=== PATIENT | female | born 1995 | race African-American/Black ===

== ENCOUNTER 2017-01-31 09:01 | Emergency (ER) | payer MEDICAID ==
[~2017-01-31] VITALS: Ht 170.2 cm; Wt 80.0 kg
[~2017-01-31 09:01] MED LIST: IBUP800T23 PO
[2017-01-31 09:03] VITALS: BP 145/66; PULSE 116; RESP 24; TEMP 98.3; O2SAT 100
[2017-01-31] MEDS ORDERED: TRAM50TA PO (09:33)
[2017-01-31] MEDS ORDERED: CLIN1CAP5 PO (09:47)
--- NOTE | 2017-01-31 09:47 | PD ---
HPI Chief Complaint: Oral / Dental Pain or Problem Time Seen by Provider: 09:30 Travel History International Travel<30 days: No Contact w/Intl Traveler<30days: No Traveled to known affect area: No History of Present Illness HPI Patient is a 21-year-old female presented to the emergency room for evaluation of left upper tooth pain. Patient states her tooth broke in October however last night she was eating a hot pocket and it chipped further causing exacerbation of her pain. Patient states she's been taking ibuprofen with no relief of her symptoms. She states that she was evaluated after the tooth broke in October and was unable to get it extracted until February in [place] due to her insurance issues. Pain is a 10 out of 10 currently and describes it as shooting and throbbing. She has no other complaints at this time. [facility] Past Medical History Genitourinary: Yes Immunizations Current: Yes ?: Not Social History Alcohol Use: No Tobacco Use: No Substance Use: No Allergies-Medications (Allergen,Severity, Reaction): Coded Allergies: No Known Allergies (Unverified , 01/31/17) Reported Meds & Prescriptions Reported Meds & Active Scripts Active Clindamycin (Clindamycin HCl) 150 Mg Cap 300 Mg PO Q8HR 10 Days Tramadol (Tramadol HCl) 50 Mg Tab 50 Mg PO Q6H PRN Ibuprofen 800 Mg Tab 800 Mg PO Q6HR PRN Review of Systems Except as stated in HPI: all other systems reviewed are Neg HENT: Positive: Dental Difficulties Physical Exam Narrative GENERAL: Well-nourished, well-developed patient. SKIN: Warm and dry. HEAD: Normocephalic. MOUTH: Mucous membranes moist, no lesions, tongue and gums appear normal. Left upper second molar is broken/tripped at gumline. EYES: No scleral icterus. No injection or drainage. NECK: Supple, trachea midline. No JVD or lymphadenopathy. CARDIOVASCULAR: Regular rate and rhythm without murmurs, gallops, or rubs. RESPIRATORY: Breath sounds equal bilaterally. No accessory muscle use. GASTROINTESTINAL: Abdomen soft, non-tender, nondistended. MUSCULOSKELETAL: No cyanosis, or edema. BACK: Nontender without obvious deformity. No CVA tenderness. Data Data Last Documented VS Vital Signs Date Time Temp Pulse Resp B/P Pulse Ox O2 Delivery O2 Flow Rate FiO2 01/31/17 10:01 88 18 122/77 01/31/17 09:03 98.3 100 Room Air MDM Medical Decision Making Medical Screen Exam Complete: Yes Emergency Medical Condition: Yes Interpretation(s) Vital Signs Date Time Temp Pulse Resp B/P Pulse Ox O2 Delivery O2 Flow Rate FiO2 01/31/17 09:03 98.3 116 24 145/66 100 Room Air Differential Diagnosis Abscess versus dentalgia versus caries versus other Narrative Course Patient is a 21-year-old female presenting to the emergency department evaluation of left upper molar pain after eating last night and subsequently chipping her tooth further. Left upper second molar is broken. Patient will be provided with a prescription for antibiotics as well as a short course of oral pain medications. She is advised to follow-up with her dentist as soon as possible for further evaluation and management. She was encouraged return to emergency department for any new or worsening symptoms. Patient verbalized understanding. Patient stable for discharge. Patient's heart rate and respiratory rate were elevated on arrival, vital signs were reassessed and were within normal limits. Diagnosis Primary Impression: Pain due to dental caries Referrals: Dentist Patient Instructions: Dental Caries (DC), General Instructions Additional Instructions: Follow-up with your dentist Take medications as directed Return to emergency department for any new or worsening symptoms Med/Other Pt SpecificInfo: Prescription(s) given Scripts Clindamycin 150 Mg [id number] Mg PO Q8HR 10 Days Ref 0 Prov:Zari Fisher 01/31/17 Tramadol 50 Mg Tab50 Mg PO Q6H PRN (PAIN) #15 TAB Ref 0 Prov:Aan Desir DO 01/31/17 Disposition: 01 DISCHARGE HOME Condition: Stable Zari Fisher Jan 31, 2017 09:47
[2017-01-31 10:01] VITALS: BP 122/77; PULSE 88; RESP 18
== END 2017-01-31 10:25 | disposition home or self-care (01) ==
LOC: NEPB 09:01
DX: K02.9 Dental caries, unspecified (principal)
CPT/HCPCS: 99282

== ENCOUNTER 2017-05-06 14:44 | Emergency (ER) | payer MEDICAID ==
[~2017-05-06] VITALS: Ht 170.2 cm; Wt 77.0 kg
[~2017-05-06 14:44] MED LIST changes: +CLIN1CAP5 PO; +TRAM50TA PO
[2017-05-06 14:45] VITALS: BP 151/99; PULSE 80; RESP 16; TEMP 98.2; O2SAT 99
[2017-05-06 16:02] LABS: AUTOMATED NEUTROPHIL # 2.5 TH/MM3 (1.8-7.7); BASOPHIL % 0.6 % (0.0-2.0); EOSINOPHIL # 0.1 TH/MM3 (0-0.4); EOSINOPHIL % 1.8 % (0.0-4.0); HEMATOCRIT 40.2 % (35.0-46.0); HEMO FLAGS DIFF FINAL; LYMPH % 37.2 % (9.0-44.0); LYMPHOCYTE # 1.8 TH/MM3 (1.0-4.8); MEAN CELL VOLUME 89.1 FL (80.0-100.0); MEAN CORPUSCULAR HEMOGLOBIN 29.6 PG (27.0-34.0); MEAN CORPUSCULAR HGB CONC 33.3 % (32.0-36.0); MONO % 7.1 % (0.0-8.0); NEUT % 53.3 % (16.0-70.0); PLATELET COUNT 220 TH/MM3 (150-450); RED BLOOD COUNT 4.51 MIL/MM3 (4.00-5.30); RED CELL DISTRIBUTION WIDTH 13.8 % (11.6-17.2); WHITE BLOOD COUNT 4.8 TH/MM3 (4.0-11.0)
[2017-05-06 16:09] LABS: BACTERIA, URINE RARE /hpf; BLOOD, URINE TRACE (NEG); COMMENT (UR) CULTURE INDICATED; CULTURE IF INDICATED CULTURE INDICATED; GLUCOSE,URINE NEG (NEG); KETONE, URINE NEG (NEG); MUCUS URINE FEW /lpf (OCC); SQUAMOUS EPITHELIAL CELL URINE 5 /hpf (0-5)
[2017-05-06 16:10] LABS: NITRITE,URINE POS (NEG); URINE COLOR DARK-BROWN (YELLW/STRAW)
[2017-05-06 16:20] LABS: BICARBONATE 28.1 MEQ/L (21.0-32.0); POTASSIUM 3.3 MEQ/L (3.5-5.1)
--- NOTE | 2017-05-06 16:55 | PD ---
HPI Chief Complaint: Complaint Time Seen by Provider: 16:54 Travel History International Travel<30 days: No Contact w/Intl Traveler<30days: No Traveled to known affect area: No History of Present Illness HPI 21 YO female presents to the ED for evaluation of 48 hour history of dysuria, increased urinary urgency. Sudden onset yesterday afternoon. Patient also complains of approximately 30 day history of cough productive of "brown phlegm" and shortness of breath. She denies fever, chills, palpitations, chest pain, abdominal pain, anorexia, nausea, vomiting, changes in bowel habits. Endorses right-sided back pain. States that she has treated the cough with multiple over -the-counter medications with no improvement of symptoms. PFSH Past Medical History Hx Anticoagulant Therapy: No Cardiovascular Problems: No Chemotherapy: No Cerebrovascular Accident: No Diabetes: No Genitourinary: Yes Respiratory: No Immunizations Current: Yes ?: Not LMP: 04/30/17 Past Surgical History Hysterectomy: No Social History Alcohol Use: No Tobacco Use: No Substance Use: No Allergies-Medications (Allergen,Severity, Reaction): Coded Allergies: No Known Allergies (Unverified , 05/06/17) Reported Meds & Prescriptions Reported Meds & Active Scripts Active Tessalon Perles (Benzonatate) 100 Mg Cap 200 Mg PO TID PRN Bactrim DS (Sulfamethoxazole-Trimethoprim) 800-160 Mg Tab 1 Tab PO BID 14 Days Clindamycin (Clindamycin HCl) 150 Mg Cap 300 Mg PO Q8HR 10 Days Tramadol (Tramadol HCl) 50 Mg Tab 50 Mg PO Q6H PRN Ibuprofen 800 Mg Tab 800 Mg PO Q6HR PRN Review of Systems Except as stated in HPI: all other systems reviewed are Neg Physical Exam Narrative GENERAL: Well-nourished, well-developed nontoxic-appearing female in no acute distress. SKIN: Focused skin assessment warm/dry. HEAD: Normocephalic. EYES: No scleral icterus. No injection or drainage. NECK: Supple, trachea midline. No JVD or lymphadenopathy. CARDIOVASCULAR: Regular rate and rhythm without murmurs, gallops, or rubs. RESPIRATORY: Breath sounds clear and equal bilaterally. No accessory muscle use. GASTROINTESTINAL: Abdomen soft, non-tender, nondistended. Mild suprapubic tenderness. Active bowel sounds. MUSCULOSKELETAL: No cyanosis, or edema. BACK: Nontender without obvious deformity. ++ Right-sided CVA tenderness. Data Data Last Documented VS Vital Signs Date Time Temp Pulse Resp B/P Pulse Ox O2 Delivery O2 Flow Rate FiO2 05/06/17 14:45 98.2 80 16 151/99 99 Orders Urinalysis - C+S If Indicated (05/06/17 14:57) Ed Urine Pregnancytest Poc (05/06/17 14:57) Complete Blood Count With Diff (05/06/17 14:57) Basic Metabolic Panel (Bmp) (05/06/17 14:57) Urine Culture (05/06/17 15:15) Chest, Single Ap (05/06/17 ) Labs Laboratory Tests Test 05/06/17 15:15 White Blood Count 4.8 TH/MM3 Red Blood Count 4.51 MIL/MM3 Hemoglobin 13.4 GM/DL Hematocrit 40.2 % Mean Corpuscular Volume 89.1 FL Mean Corpuscular Hemoglobin 29.6 PG Mean Corpuscular Hemoglobin 33.3 % Concent Red Cell Distribution Width 13.8 % Platelet Count 220 TH/MM3 Mean Platelet Volume 8.9 FL Neutrophils (%) (Auto) 53.3 % Lymphocytes (%) (Auto) 37.2 % Monocytes (%) (Auto) 7.1 % Eosinophils (%) (Auto) 1.8 % Basophils (%) (Auto) 0.6 % Neutrophils # (Auto) 2.5 TH/MM3 Lymphocytes # (Auto) 1.8 TH/MM3 Monocytes # (Auto) 0.3 TH/MM3 Eosinophils # (Auto) 0.1 TH/MM3 Basophils # (Auto) 0.0 TH/MM3 CBC Comment DIFF FINAL Differential Comment Urine Color DARK-BROWN Urine Turbidity HAZY Urine pH 6.0 Urine Specific [place] 1.010 Urine Protein NEG mg/dL Urine Glucose (UA) NEG mg/dL Urine Ketones NEG mg/dL Urine Occult Blood TRACE Urine Nitrite POS Urine Bilirubin NEG Urine Urobilinogen 2.0 MG/DL Urine Leukocyte Esterase LARGE Urine RBC LESS THAN 1 /hpf Urine WBC 4 /hpf Urine Squamous Epithelial 5 /hpf Cells Urine Bacteria RARE /hpf Urine Mucus FEW /lpf Microscopic Urinalysis Comment CULTURE INDICATED Sodium Level 140 MEQ/L Potassium Level 3.3 MEQ/L Chloride Level 106 MEQ/L Carbon Dioxide Level 28.1 MEQ/L Anion Gap 6 MEQ/L Blood Urea Nitrogen 8 MG/DL Creatinine 0.80 MG/DL Estimat Glomerular Filtration 108 ML/MIN Rate Random Glucose 81 MG/DL Calcium Level 9.2 MG/DL MDM Medical Decision Making Medical Screen Exam Complete: Yes Emergency Medical Condition: Yes Differential Diagnosis Cystitis versus pyelonephritis versus versus bronchitis versus pneumonia versus other Narrative Course 21 YO female presents to the ED for evaluation of 48 hour history of dysuria, increased urinary urgency. Sudden onset yesterday afternoon. Patient also complains of approximately 30 day history of cough productive of "brown phlegm" and shortness of breath. She denies fever, chills, palpitations, chest pain, abdominal pain, anorexia, nausea, vomiting, changes in bowel habits. Endorses right-sided back pain. States that she has treated the cough with multiple over -the-counter medications with no improvement of symptoms. Vitals reviewed. Physical exam reveals a nontoxic appearing white female in no acute distress. Chest is clear to auscultation bilaterally. Abdomen soft, nontender. There is right-sided CVA tenderness. Urine test negative. No acute disease on chest x-ray. CBC and CMP are unremarkable. UA nitrite positive, large leukocyte esterase, rare bacteria. This is pyelonephritis. She was prescribed Bactrim DS twice a day 14 days [facility]. He is provided a few doses of Tessalon Perles. She is instructed take the medication as prescribed, follow up with primary care provider, return for worsening symptoms. She indicated understanding of instructions and is agreeable to a care plan. She is stable and discharged home. Diagnosis Primary Impression: Pyelonephritis Additional Impression: Persistent cough Referrals: Primary Care Physician Patient Instructions: Acute Pyelonephritis (ED), General Instructions Additional Instructions: Rest, hydrate. Take all antibiotics as prescribed, even if your symptoms resolve. Tessalon Perles as prescribed to reduce coughing. Follow-up with the primary care provider this week. Return to the ED for any urgent or emergent medical condition. Med/Other Pt SpecificInfo: Prescription(s) given Scripts Benzonatate (Tessalon Perles)100 Mg [id number] Mg PO TID PRN (COUGH) #12 CAP Ref 0 Prov:Odessa Holley MD 05/06/17 Sulfamethoxazole-Trimethoprim (Bactrim DS)800-160 Mg Tab1 Tab PO BID 14 Days Ref 0 Prov:Highet,Odessa H. MD 05/06/17 Disposition: 01 DISCHARGE HOME Condition: Stable Ioana Allen May 06, 2017 16:55
[2017-05-06] MEDS ORDERED: BACT800T5 PO (17:18)
--- NOTE | 2017-05-06 17:42 | RADRPT ---
EXAM DATE/TIME: 05/06/2017 17:31 [facility] COMPARISON: No previous studies available for comparison. INDICATIONS : Cough, difficulty breathing for 1 month MEDICAL HISTORY : None. SURGICAL HISTORY : None. ENCOUNTER: Initial ACUITY: 1 month PAIN SCORE: 5/10 LOCATION: Bilateral chest FINDINGS: A single view of the chest demonstrates the lungs to be symmetrically aerated without evidence of mas s, infiltrate or effusion. The cardiomediastinal contours are unremarkable. Osseous structures are intact. CONCLUSION: No acute disease. Shawn Suarez MD on May 06, 2017 at 17:39 Board Certified Radiologist. This report was verified electronically.
[2017-05-06] MEDS ORDERED: BENZ100 PO (17:43)
== END 2017-05-06 18:01 | disposition home or self-care (01) ==
LOC: NEPD 14:44
DX: N12 Tubulo-interstitial nephritis, not specified as acute or chronic (principal); B96.20 Unspecified Escherichia coli [E. coli] as the cause of diseases classified elsewhere; R05 Cough; R06.02 Shortness of breath
CPT/HCPCS: 71010; 80048; 81001; 84703; 85025; 87077; 87086; 87186; 99284

== ENCOUNTER 2017-06-11 10:11 | Emergency (ER) | payer MEDICAID ==
[~2017-06-11] VITALS: Ht 170.2 cm; Wt 80.0 kg
[~2017-06-11 10:11] MED LIST changes: +BACT800T5 PO; +BENZ100 PO
[2017-06-11] MEDS ORDERED: SODIUM CHLOR 0.9% 1000 ML INJ 1,000 ML IV ONE ×2 (10:15)
[2017-06-11] MEDS ORDERED: METOCLOPRAMIDE HCL 10 MG/2 ML VIAL IV PUSH ONE (10:15)
[2017-06-11] MEDS ORDERED: SODIUM CHLORIDE 0.9% FLUSH 10 ML FLUSH IVF PRN (10:15)
[2017-06-11] MEDS ORDERED: diphenhydrAMINE HCL 50 MG/ML VIAL IM ONE (10:15)
[2017-06-11 10:17] VITALS: BP 165/79; PULSE 73; RESP 26; TEMP 97.6; O2SAT 100
--- NOTE | 2017-06-11 10:30 | PD ---
HPI Chief Complaint: nausea and vomiting Time Seen by Provider: 10:15 Travel History International Travel<30 days: No Contact w/Intl Traveler<30days: No History of Present Illness HPI 21 yo female arrives by EMS. She drank alcohol last night, 2 drinks, and woke up at 5am with nausea and vomiting repeatedly. Upon arrival to ER emesis was bilious. She also complains of abdominal pain since this AM. To the RN she mentioned a recent diagnosis of pyelonephritis and believes the same process might be affecting her today. Hx is somewhat limited upon pt's arrival 2/2 intoxicated state. PFSH Past Medical History Hx Anticoagulant Therapy: No Cardiovascular Problems: No Chemotherapy: No Cerebrovascular Accident: No Diabetes: No Genitourinary: Yes Respiratory: No Immunizations Current: Yes Past Surgical History Hysterectomy: No Social History Alcohol Use: No Tobacco Use: No Substance Use: No Allergies-Medications (Allergen,Severity, Reaction): Coded Allergies: No Known Allergies (Unverified , 05/06/17) Reported Meds & Prescriptions Reported Meds & Active Scripts Active Tramadol (Tramadol HCl) 50 Mg Tab 50 Mg PO Q6H PRN Zofran Odt (Ondansetron Odt) 4 Mg Tab 4 Mg SL Q8HR PRN Tessalon Perles (Benzonatate) 100 Mg Cap 200 Mg PO TID PRN Bactrim DS (Sulfamethoxazole-Trimethoprim) 800-160 Mg Tab 1 Tab PO BID 14 Days Clindamycin (Clindamycin HCl) 150 Mg Cap 300 Mg PO Q8HR 10 Days Ibuprofen 800 Mg Tab 800 Mg PO Q6HR PRN Review of Systems Except as stated in HPI: all other systems reviewed are Neg General / Constitutional: No: Fever Gastrointestinal: Positive: Nausea, Vomiting, Abdominal Pain Physical Exam Narrative GENERAL: 21 yo F, WNWD, vomiting on EMS stretcher, AOx3 SKIN: Warm and dry. HEAD: Atraumatic. Normocephalic. EYES: Pupils equal and round. No scleral icterus. No injection or drainage. ENT: No nasal bleeding or discharge. Mucous membranes pink and moist. NECK: Trachea midline. No JVD. CARDIOVASCULAR: Regular rate and rhythm. RESPIRATORY: No accessory muscle use. Clear to auscultation. Breath sounds equal bilaterally. GASTROINTESTINAL: Soft. No focus of tenderness. MUSCULOSKELETAL: Extremities without clubbing, cyanosis, or edema. No obvious deformities. NEUROLOGICAL: Awake and alert. No obvious cranial nerve deficits. Motor grossly within normal limits. Five out of 5 muscle strength in the arms and legs. Normal speech. PSYCHIATRIC: Reasonably cooperative. Data Data Last Documented VS Vital Signs Date Time Temp Pulse Resp B/P Pulse Ox O2 Delivery O2 Flow Rate FiO2 06/11/17 15:00 16 99 Room Air 06/11/17 14:03 64 132/74 06/11/17 10:17 97.6 VS reviewed Orders Iv Access Insert/Monitor (06/11/17 10:15) Ecg Monitoring (06/11/17 10:15) Oximetry (06/11/17 10:15) Sodium Chlor 0.9% 1000 Ml Inj (Ns 1000 M (06/11/17 10:15) Sodium Chloride 0.9% Flush (Ns Flush) (06/11/17 10:15) Metoclopramide Inj (Reglan Inj) (06/11/17 10:15) Diphenhydramine Inj (Benadryl Inj) (06/11/17 10:15) Sodium Chlor 0.9% 1000 Ml Inj (Ns 1000 M (06/11/17 10:15) Complete Blood Count With Diff (06/11/17 10:41) Comprehensive Metabolic Panel (06/11/17 10:41) Lipase (06/11/17 10:41) Urinalysis - C+S If Indicated (06/11/17 10:41) Sodium Chloride 0.9% Flush (Ns Flush) (06/11/17 10:45) Alcohol (Ethanol) (06/11/17 10:48) Drug Screen, Random Urine (06/11/17 10:48) Promethazine Inj (Phenergan Inj) (06/11/17 12:15) Al-Mag Hy-Si 40-40-4 Mg/Ml Liq (Mag-Al P (06/11/17 12:30) Lidocaine 2% Viscous (Xylocaine 2% Visco (06/11/17 12:30) Ketorolac Inj (Toradol Inj) (06/11/17 12:45) Ed Urine Pregnancytest Poc (06/11/17 13:21) Ct Abd/Pel W Iv Contrast(Rout) (06/11/17 13:21) Iohexol 350 Inj (Omnipaque 350 Inj) (06/11/17 13:54) Hydromorphone Pf Inj (Dilaudid Pf Inj) (06/11/17 14:30) Gc And Chlamydia Pcr (06/11/17 14:23) Wet Prep Profile (06/11/17 14:23) Us Pelvis Comp W Dop Transvag (06/11/17 14:23) Azithromycin Powd Pack (Zithromax Powd P (06/11/17 15:45) Ceftriaxone Inj (Rocephin Inj) (06/11/17 15:45) Lidocaine 1% Inj (50 Ml) (Xylocaine 1% I (06/11/17 15:45) Lidocaine Pf 1% Inj (Xylocaine-Mpf 1% In (06/11/17 16:01) Labs Laboratory Tests Test 06/11/17 06/11/17 06/11/17 10:50 11:55 15:10 White Blood Count 6.6 TH/MM3 Red Blood Count 4.58 MIL/MM3 Hemoglobin 14.0 GM/DL Hematocrit 41.0 % Mean Corpuscular Volume 89.5 FL Mean Corpuscular Hemoglobin 30.5 PG Mean Corpuscular Hemoglobin 34.0 % Concent Red Cell Distribution Width 14.2 % Platelet Count 214 TH/MM3 Mean Platelet Volume 9.1 FL Neutrophils (%) (Auto) 54.9 % Lymphocytes (%) (Auto) 35.0 % Monocytes (%) (Auto) 8.5 % Eosinophils (%) (Auto) 0.9 % Basophils (%) (Auto) 0.7 % Neutrophils # (Auto) 3.6 TH/MM3 Lymphocytes # (Auto) 2.3 TH/MM3 Monocytes # (Auto) 0.6 TH/MM3 Eosinophils # (Auto) 0.1 TH/MM3 Basophils # (Auto) 0.0 TH/MM3 CBC Comment DIFF FINAL Differential Comment Sodium Level 142 MEQ/L Potassium Level 3.2 MEQ/L Chloride Level 110 MEQ/L Carbon Dioxide Level 21.8 MEQ/L Anion Gap 10 MEQ/L Blood Urea Nitrogen 10 MG/DL Creatinine 0.82 MG/DL Estimat Glomerular Filtration 105 ML/MIN Rate Random Glucose 118 MG/DL Calcium Level 8.8 MG/DL Total Bilirubin 0.4 MG/DL Aspartate Amino Transf 11 U/L (AST/SGOT) Alanine Aminotransferase 15 U/L (ALT/SGPT) Alkaline Phosphatase 52 U/L Total Protein 7.8 GM/DL Albumin 4.1 GM/DL Lipase 94 U/L Ethyl Alcohol Level LESS THAN 3 MG/DL Urine Color LIGHT-YELLOW Urine Turbidity CLEAR Urine pH 8.5 Urine Specific [place] 1.013 Urine Protein NEG mg/dL Urine Glucose (UA) NEG mg/dL Urine Ketones TRACE mg/dL Urine Occult Blood TRACE Urine Nitrite NEG Urine Bilirubin NEG Urine Urobilinogen LESS THAN 2.0 MG/DL Urine Leukocyte Esterase NEG Urine RBC 1 /hpf Urine WBC 1 /hpf Urine Bacteria RARE /hpf Microscopic Urinalysis Comment CULT NOT INDICATED Urine Opiates Screen NEG Urine Barbiturates Screen NEG Urine Amphetamines Screen NEG Urine Benzodiazepines Screen NEG Urine Cocaine Screen NEG Urine Cannabinoids Screen POS Clue Cells (Wet Prep) NONE SEEN Vaginal Trichomonas (Wet Prep) NONE SEEN Vaginal Yeast (Wet Prep) NONE SEEN MDM Medical Decision Making Medical Screen Exam Complete: Yes Emergency Medical Condition: Yes Medical Record Reviewed: Yes Differential Diagnosis Gastritis, pancreatitis, appendicitis, acute cholecystitis, ascending cholangitis, AAA, perforated viscous, mesenteric ischemia, hepatitis, cystitis, hydronephrosis/hydroureter/nephroureter calculus, mesenteric adenitis, biliary colic Narrative Course CBC & BMP Diagram 06/11/17 10:50 Alcohol < 3 LFTs normal Lipase normal 1150: vomiting, Phenergan IM ordered, pt reports she seldom if ever drinks alcohol 1220: no n/v, will continue observation 1325: pt c/o severe pain in abdomen and mentions she's had it for the last hour CMT on exam: Rocephin/Azithromycin. Last 24 hours Impressions Abdomen/Pelvis/Transvag US 06/11/17 1423 Signed Impressions: Service Date/Time: Sunday, June 11, 2017 14:30 - CONCLUSION: Complex right ovarian cystic lesion measuring 4.4 x 3.6 x 2.5 cm. Otherwise unremarkable sonogram of the pelvis. Man Chávez MD Abdomen/Pelvis CT 06/11/17 1321 Signed Impressions: Service Date/Time: Sunday, June 11, 2017 13:53 - CONCLUSION: Right adnexal cystic mass measuring 5.1 x 3.6 x 3.[address] of the abdomen and pelvis. Man Chávez MD The patient is resting comfortably and feels better, is alert and in no distress. The patients results and examination findings were discussed. The repeat examination is unremarkable and benign. The history, exam, diagnostic testing, and current condition do not suggest any significant pathology to warrant further testing, continued ED treatment, admission, or surgical evaluation at this point. The vital signs have been stable. The patient does not have uncontrollable pain, intractable vomiting, or other significant symptoms. The patient's condition is stable and appropriate for discharge. The patient will pursue further outpatient evaluation with a primary care physician or other designated or consulting physician as indicated in the discharge instructions. The patient expressed understanding and was agreeable with this plan. Diagnosis Primary Impression: Nausea & vomiting Qualified Code: R11.2 - Non-intractable vomiting with nausea, unspecified vomiting type Additional Impression: Abdominal pain Qualified Code: R10.9 - Abdominal pain, unspecified location Referrals: Nathalie Sosa MD 2 days Primary Care Physician 2 days Additional Instructions: You have a choice when it comes to health care, and we are glad that you chose [facility]. Hopefully, we have met your expectations on today's visit. You are welcome to return to [facility] at any time, as we are committed to meeting the health care needs of our community. PLEASE CALL DR SOSA'S OFFICE Tuesday TO SCHEDULE AN APPOINTMENT FOR SOON POSSIBLE. IF YOU DEVELOP CONSTANT SEVERE PLAIN PLEASE RETURN TO THE ER RIGHT AWAY. IF YOU DEVELOP FEVER PLEASE RETURN. Med/Other Pt SpecificInfo: Prescription(s) given Scripts Tramadol 50 Mg Tab50 Mg PO Q6H PRN (PAIN) #20 TAB Ref 0 Prov:Ramses Ahuja MD 06/11/17 Ondansetron Odt (Zofran Odt)4 Mg Tab4 Mg SL Q8HR PRN (Nausea/Vomiting) #10 TAB Ref 0 Prov:Ramses Ahuja MD 06/11/17 Disposition: 01 DISCHARGE HOME Condition: Stable Ramses Ahuja MD Jun 11, 2017 10:30
[2017-06-11] MEDS ORDERED: SODIUM CHLORIDE 0.9% FLUSH 10 ML FLUSH IV FLUSH PRN (10:45)
[2017-06-11 11:12] LABS: AUTOMATED NEUTROPHIL # 3.6 TH/MM3 (1.8-7.7); BASOPHIL % 0.7 % (0.0-2.0); EOSINOPHIL # 0.1 TH/MM3 (0-0.4); EOSINOPHIL % 0.9 % (0.0-4.0); HEMO FLAGS DIFF FINAL; LYMPHOCYTE # 2.3 TH/MM3 (1.0-4.8); MEAN CELL VOLUME 89.5 FL (80.0-100.0); MEAN CORPUSCULAR HEMOGLOBIN 30.5 PG (27.0-34.0); MONO % 8.5 % (0.0-8.0); NEUT % 54.9 % (16.0-70.0); PLATELET COUNT 214 TH/MM3 (150-450); RED BLOOD COUNT 4.58 MIL/MM3 (4.00-5.30); RED CELL DISTRIBUTION WIDTH 14.2 % (11.6-17.2); WHITE BLOOD COUNT 6.6 TH/MM3 (4.0-11.0)
[2017-06-11 11:24] LABS: ALT (GPT) 15 U/L (10-53); ANION GAP 10 MEQ/L (5-15); AST (GOT) 11 U/L (15-37); BICARBONATE 21.8 MEQ/L (21.0-32.0); BLOOD UREA NITROGEN 10 MG/DL (7-18); CHLORIDE 110 MEQ/L (98-107); GLOMERULAR FILTRATION RATE 105 ML/MIN (>89); POTASSIUM 3.2 MEQ/L (3.5-5.1); SODIUM (NA) 142 MEQ/L (136-145)
[2017-06-11 11:26] LABS: ALKALINE PHOSPHATASE 52 U/L (45-117); TOTAL BILIRUBIN ADULT 0.4 MG/DL (0.2-1.0)
[2017-06-11 12:14] LABS: BACTERIA, URINE RARE /hpf; BLOOD, URINE TRACE (NEG); COMMENT (UR) CULT NOT INDICATED; CULTURE IF INDICATED CULT NOT INDICATED; GLUCOSE,URINE NEG (NEG); KETONE, URINE TRACE mg/dL (NEG); NITRITE,URINE NEG (NEG); PH, URINE 8.5 (5.0-8.5); URINE COLOR LIGHT-YELLOW (YELLW/STRAW)
[2017-06-11] MEDS ORDERED: PROMETHAZINE INJ 25 MG/ML VIAL IM ONE (12:15)
[2017-06-11 12:16] LABS: AMPHETAMINE, URINE NEG (NEG); BARBITURATES, URINE NEG (NEG); COCAINE, URINE NEG (NEG)
[2017-06-11] MEDS ORDERED: ZOFR4TAB3 SL (12:23)
[2017-06-11] MEDS ORDERED: ALUMINUM/MAGNESIUM/SIMETH 30 ML CUP PO ONE (12:30)
[2017-06-11] MEDS ORDERED: LIDOCAINE VISCOUS 2% SOLN 15 ML UDC PO ONE (12:30)
[2017-06-11] MEDS ORDERED: KETOROLAC TROMETHAMINE 30 MG/ML (IVP) VIAL IV PUSH ONE (12:45)
[2017-06-11] MEDS ORDERED: IOHEXOL 350 MG/ML 10 ML VIAL (for RAD DIAG) IV ONE (13:54)
[2017-06-11 14:03] VITALS: BP 132/74; PULSE 64; RESP 16; O2SAT 100
--- NOTE | 2017-06-11 14:09 | RADRPT ---
EXAM DATE/TIME: 06/11/2017 13:53 [facility] COMPARISON: No previous studies available for comparison. INDICATIONS : Lower abdominal pain. IV CONTRAST: 80 cc Omnipaque 350 (iohexol) IV ORAL CONTRAST: No oral contrast ingested. RADIATION DOSE: 8.34 CTDIvol (mGy) MEDICAL HISTORY : None SURGICAL HISTORY : None. ENCOUNTER: Initial ACUITY: 1 day PAIN SCALE: 10/10 LOCATION: Bilateral lower quadrant TECHNIQUE: Volumetric scanning of the abdomen and pelvis was performed. Using automated exposure control and ad justment of the mA and/or kV according to patient size, radiation dose was kept as low as reasonably achievable to obtain optimal diagnostic quality images. DICOM format image data is available electro nically for review and comparison. FINDINGS: LOWER LUNGS: The visualized lower lungs are clear. LIVER: Homogeneous density without lesion. There is no dilation of the biliary tree. No calcified gallston es. SPLEEN: Normal size without lesion. PANCREAS: Within normal limits. KIDNEYS: Normal in size and shape. There is no mass, stone or hydronephrosis. ADRENAL GLANDS: Within normal limits. VASCULAR: There is no aortic aneurysm. BOWEL/MESENTERY: The stomach, small bowel, and colon demonstrate no acute abnormality. There is no free intraperitone al air or fluid. ABDOMINAL WALL: Within normal limits. RETROPERITONEUM: There is no lymphadenopathy. BLADDER: No wall thickening or mass. REPRODUCTIVE: There is a right adnexal cystic mass measuring 5.1 x 3.6 x 3.8 cm. The uterus is unremarkable. The le ft ovary is unremarkable. INGUINAL: There is no lymphadenopathy or hernia. MUSCULOSKELETAL: Within normal limits for patient age. CONCLUSION: Right adnexal cystic mass measuring 5.1 x 3.6 x 3.[address] of the abdomen and pelvis. Man Chávez MD on June 11, 2017 at 14:04 Board Certified Radiologist. This report was verified electronically.
[2017-06-11] MEDS ORDERED: HYDROmorphone HCL PF 1 MG/ML VIAL IV PUSH ONE (14:30)
[2017-06-11 15:00] VITALS: RESP 16; O2SAT 99
--- NOTE | 2017-06-11 15:25 | PD ---
Physical Exam Date Seen by Provider: Jun 11, 2017 Time Seen by Provider: 15:23 Narrative GENITOURINARY: Normal external genitalia without lesions or erythema. Vaginal vault without blood or drainage. Cervical os was closed without drainage. Mild erythema of the cervical os. Positive cervical motion tenderness. Uterus nontender and nonenlarged. Positive bilateral adnexal tenderness, right greater than left. Data Data Last Documented VS Vital Signs Date Time Temp Pulse Resp B/P Pulse Ox O2 Delivery O2 Flow Rate FiO2 06/11/17 14:03 64 16 132/74 100 Room Air 06/11/17 10:17 97.6 Orders Iv Access Insert/Monitor (06/11/17 10:15) Ecg Monitoring (06/11/17 10:15) Oximetry (06/11/17 10:15) Sodium Chlor 0.9% 1000 Ml Inj (Ns 1000 M (06/11/17 10:15) Sodium Chloride 0.9% Flush (Ns Flush) (06/11/17 10:15) Metoclopramide Inj (Reglan Inj) (06/11/17 10:15) Diphenhydramine Inj (Benadryl Inj) (06/11/17 10:15) Sodium Chlor 0.9% 1000 Ml Inj (Ns 1000 M (06/11/17 10:15) Complete Blood Count With Diff (06/11/17 10:41) Comprehensive Metabolic Panel (06/11/17 10:41) Lipase (06/11/17 10:41) Urinalysis - C+S If Indicated (06/11/17 10:41) Sodium Chloride 0.9% Flush (Ns Flush) (06/11/17 10:45) Alcohol (Ethanol) (06/11/17 10:48) Drug Screen, Random Urine (06/11/17 10:48) Promethazine Inj (Phenergan Inj) (06/11/17 12:15) Al-Mag Hy-Si 40-40-4 Mg/Ml Liq (Mag-Al P (06/11/17 12:30) Lidocaine 2% Viscous (Xylocaine 2% Visco (06/11/17 12:30) Ketorolac Inj (Toradol Inj) (06/11/17 12:45) Ed Urine Pregnancytest Poc (06/11/17 13:21) Ct Abd/Pel W Iv Contrast(Rout) (06/11/17 13:21) Iohexol 350 Inj (Omnipaque 350 Inj) (06/11/17 13:54) Hydromorphone Pf Inj (Dilaudid Pf Inj) (06/11/17 14:30) Gc And Chlamydia Pcr (06/11/17 14:23) Wet Prep Profile (06/11/17 14:23) Us Pelvis Comp W Dop Transvag (06/11/17 14:23) Labs Laboratory Tests Test 06/11/17 06/11/17 10:50 11:55 White Blood Count 6.6 TH/MM3 Red Blood Count 4.58 MIL/MM3 Hemoglobin 14.0 GM/DL Hematocrit 41.0 % Mean Corpuscular Volume 89.5 FL Mean Corpuscular Hemoglobin 30.5 PG Mean Corpuscular Hemoglobin 34.0 % Concent Red Cell Distribution Width 14.2 % Platelet Count 214 TH/MM3 Mean Platelet Volume 9.1 FL Neutrophils (%) (Auto) 54.9 % Lymphocytes (%) (Auto) 35.0 % Monocytes (%) (Auto) 8.5 % Eosinophils (%) (Auto) 0.9 % Basophils (%) (Auto) 0.7 % Neutrophils # (Auto) 3.6 TH/MM3 Lymphocytes # (Auto) 2.3 TH/MM3 Monocytes # (Auto) 0.6 TH/MM3 Eosinophils # (Auto) 0.1 TH/MM3 Basophils # (Auto) 0.0 TH/MM3 CBC Comment DIFF FINAL Differential Comment Sodium Level 142 MEQ/L Potassium Level 3.2 MEQ/L Chloride Level 110 MEQ/L Carbon Dioxide Level 21.8 MEQ/L Anion Gap 10 MEQ/L Blood Urea Nitrogen 10 MG/DL Creatinine 0.82 MG/DL Estimat Glomerular Filtration 105 ML/MIN Rate Random Glucose 118 MG/DL Calcium Level 8.8 MG/DL Total Bilirubin 0.4 MG/DL Aspartate Amino Transf 11 U/L (AST/SGOT) Alanine Aminotransferase 15 U/L (ALT/SGPT) Alkaline Phosphatase 52 U/L Total Protein 7.8 GM/DL Albumin 4.1 GM/DL Lipase 94 U/L Ethyl Alcohol Level LESS THAN 3 MG/DL Urine Color LIGHT-YELLOW Urine Turbidity CLEAR Urine pH 8.5 Urine Specific Halsey 1.013 Urine Protein NEG mg/dL Urine Glucose (UA) NEG mg/dL Urine Ketones TRACE mg/dL Urine Occult Blood TRACE Urine Nitrite NEG Urine Bilirubin NEG Urine Urobilinogen LESS THAN 2.0 MG/DL Urine Leukocyte Esterase NEG Urine RBC 1 /hpf Urine WBC 1 /hpf Urine Bacteria RARE /hpf Microscopic Urinalysis Comment CULT NOT INDICATED Urine Opiates Screen NEG Urine Barbiturates Screen NEG Urine Amphetamines Screen NEG Urine Benzodiazepines Screen NEG Urine Cocaine Screen NEG Urine Cannabinoids Screen POS MDM Supervised Visit with ALEXEI: No Narrative Course Dr. Ahuja initially saw this patient. Please see his note for full H&P. I performed the pelvic exam. Positive findings include mild erythema of the cervical os, positive cervical motion tenderness and bilateral adnexal tenderness, right greater than left. Dr. Ahuja retains care of this patient. Please see his note for disposition. Diagnosis Primary Impression: Nausea & vomiting Qualified Code: R11.2 - Non-intractable vomiting with nausea, unspecified vomiting type Additional Impression: Abdominal pain Qualified Code: R10.9 - Abdominal pain, unspecified location Referrals: Primary Care Physician 2 days Patient Instructions: General Instructions Departure Forms: Tests/Procedures Additional Instruction: You have a choice when it comes to health care, and we are glad that you chose [facility]. Hopefully, we have met your expectations on today's visit. You are welcome to return to [facility] at any time, as we are committed to meeting the health care needs of our community. Scripts Ondansetron Odt (Zofran Odt)4 Mg Tab4 Mg SL Q8HR PRN (Nausea/Vomiting) #10 TAB Ref 0 Prov:Ramses Ahuja MD 06/11/17 Disposition: 01 DISCHARGE HOME Condition: Stable Ioana Allen Jun 11, 2017 15:25
[2017-06-11] MEDS ORDERED: AZITHROMYCIN PWD FOR SUSP 1 GM PACKET PO ONE (15:45)
[2017-06-11] MEDS ORDERED: LIDOCAINE HCL 1% 50 ML VIAL IM ONE (15:45)
[2017-06-11] MEDS ORDERED: cefTRIAXone 250 MG VIAL IM ONE (15:45)
--- NOTE | 2017-06-11 15:47 | RADRPT ---
EXAM DATE/TIME: 06/11/2017 14:30 [facility] COMPARISON: US PELVIS,COMP,W DOPLR, TRANS VAG, November 27, 2015, 20:50. INDICATIONS : Pelvic pain. MEDICAL HISTORY : . Fallopian tube stones. Alcohol use. Genitourinary symptoms. Pelvic pain. SURGICAL HISTORY : None. ENCOUNTER: Initial ACUITY: 1 week PAIN SCORE: 9/10 LOCATION: Bilateral pelvis MEASUREMENTS: UTERUS: 7.6 x 4.7 x 4.0 cm ENDOMETRIAL STRIPE: 2 mm RIGHT OVARY: 5.5 x 3.8 x 2.7 cm LEFT OVARY: 3.1 x 2.6 x 1.7 cm FINDINGS: There is a complex right ovarian cystic lesion measuring 4.4 x 3.6 x 2.5 cm. The left ovary is unrema rkable. No significant free fluid is identified within the cul-de-sac. The uterus is unremarkable. Th e endometrium is normal in thickness. CONCLUSION: Complex right ovarian cystic lesion measuring 4.4 x 3.6 x 2.5 cm. Otherwise unremarka ble sonogram of the pelvis. Man Chávez MD on June 11, 2017 at 15:39 Board Certified Radiologist. This report was verified electronically.
[2017-06-11 15:52] VITALS: RESP 16
[2017-06-11] MEDS ORDERED: TRAM50TA PO (15:57)
[2017-06-11] MEDS ORDERED: LIDOCAINE HCL 1% PF 30 ML VIAL ONE (16:01)
[2017-06-11 16:30] VITALS: BP 110/77; TEMP 97.8
[2017-06-11 19:51] LABS: CHLAMYDIA PCR DETECTED (NOT DETECT); NEISSERIA PCR NOT DETECTED (NOT DETECT)
== END 2017-06-11 16:30 | disposition home or self-care (01) ==
LOC: NEPE 10:11
DX: R11.2 Nausea with vomiting, unspecified (principal); N83.201 Unspecified ovarian cyst, right side; R10.2 Pelvic and perineal pain; L53.9 Erythematous condition, unspecified; Z79.899 Other long term (current) drug therapy
CPT/HCPCS: 74177; 76830; 76856; 80053; 80307; 81001; 83690; 84703; 85025; 87210; 87491; 87591; 93975; 96361; 96372; 96374; 96375; 99285; J0696; J1170; J1200; J1885; J2550; J2765; J7030; Q9967

== ENCOUNTER 2017-10-12 17:12 | Emergency (ER) | payer OTHER, BC ==
[~2017-10-12] VITALS: Ht 170.2 cm; Wt 78.2 kg
[~2017-10-12 17:12] MED LIST changes: +CLIN150C14 PO; -CLIN1CAP5 PO; +IBUP1TAB7 PO; -IBUP800T23 PO; +ZOFR4TAB3 SL
[2017-10-12 17:13] VITALS: BP 150/77; PULSE 87; RESP 18; TEMP 98; O2SAT 100
--- NOTE | 2017-10-12 19:27 | PD ---
HPI Chief Complaint: Back/ Neck Pain or Injury Time Seen by Provider: 19:23 Travel History International Travel<30 days: No Contact w/Intl Traveler<30days: No Traveled to known affect area: No History of Present Illness HPI 22-year-old female presents to emergency department with complaints of a back injury while at work yesterday. She states that she was lifting a box of scrubs that weighed approximately 20 pounds. She states that as she was straightening up she felt something pull in her right lower back. She had taken ibuprofen and using icy hot patch. The pain has now subsided. She states that it was a sharp burning pain. She was told by work that she needed to be seen before returning to work. She denies any acute bowel or bladder changes. She states pain is resolved now. PFSH Past Medical History Medical History: Denies Significant Hx Hx Anticoagulant Therapy: No Cardiovascular Problems: No Chemotherapy: No Cerebrovascular Accident: No Diabetes: No Diminished Hearing: No Respiratory: No Immunizations Current: Yes Tetanus Vaccination: < 5 Years ?: Not LMP: 09/17/2017 Past Surgical History Surgical History: No Previous Surgery Hysterectomy: No Social History Alcohol Use: Yes Tobacco Use: No Substance Use: No Allergies-Medications (Allergen,Severity, Reaction): Coded Allergies: No Known Allergies (Unverified , 05/06/17) Reported Meds & Prescriptions Reported Meds & Active Scripts Active Tramadol (Tramadol HCl) 50 Mg Tab 50 Mg PO Q6H PRN Zofran Odt (Ondansetron Odt) 4 Mg Tab 4 Mg SL Q8HR PRN Tessalon Perles (Benzonatate) 100 Mg Cap 200 Mg PO TID PRN Bactrim DS (Sulfamethoxazole-Trimethoprim) 800-160 Mg Tab 1 Tab PO BID 14 Days Clindamycin (Clindamycin HCl) 150 Mg Cap 300 Mg PO Q8HR 10 Days Ibuprofen 800 Mg Tab 800 Mg PO Q6HR PRN Review of Systems General / Constitutional: No: Fever Eyes: No: Visual changes HENT: No: Headaches Cardiovascular: No: Chest Pain or Discomfort Respiratory: No: Shortness of Breath Gastrointestinal: No: Abdominal Pain Genitourinary: No: Dysuria Musculoskeletal: Positive: Limited ROM, Cramping, Pain, No: Arthralgias, Weakness Skin: No Rash Neurologic: No: Weakness Psychiatric: No: Depression Endocrine: No: Polydipsia Hematologic/Lymphatic: No: Easy Bruising Physical Exam Narrative GENERAL: Well-developed, well-nourished in no acute distress. Nontoxic appearing. HEAD: Normocephalic, atraumatic. EYES: Pupils equal round and reactive. Extraocular motions intact. No scleral icterus. No injection or drainage. ENT: TMs clear without erythema. The external auditory canals clear. Nose: clear . Posterior pharynx is pink and moist. No tonsillar edema or exudate. Uvula midline. Airway patent. NECK: Trachea midline.Supple, nontender, moves head freely. No central bony tenderness or spasm. CARDIOVASCULAR: Regular rate and rhythm without murmurs, gallops, or rubs. RESPIRATORY: Clear to auscultation. Breath sounds equal bilaterally. No wheezes , rales, or rhonchi. GASTROINTESTINAL: Abdomen soft, non-tender, nondistended. No hepato-splenomegaly , or palpable masses. No guarding. EXTREMITIES: No clubbing, cyanosis, or edema. No joint tenderness, effusion, or edema noted. BACK: Nontender without deformity or crepitance. No flank tenderness.Able to and heel stand. Bends forward to 90. No saddle anesthesia. Data Data Last Documented VS Vital Signs Date Time Temp Pulse Resp B/P (MAP) Pulse Ox O2 Delivery O2 Flow Rate FiO2 10/12/17 17:13 98.0 87 18 150/77 (101) 100 Room Air Orders Orders Ed Discharge Order (10/12/17 19:23) MDM Medical Decision Making Medical Screen Exam Complete: Yes Emergency Medical Condition: Yes Medical Record Reviewed: Yes Differential Diagnosis MDM: High Differential diagnoses: Fracture, sprain, strain, HNP, nerve or vascular injury , epidural abscess, pilonidal cyst Narrative Course This is acute back strain Diagnosis Primary Impression: acute back strain Patient Instructions: General Instructions Additional Instructions: Rest. Take Advil for any pain. Use proper body mechanics when bending and lifting. Use additional help with lifting. Follow-up with workman's comp as needed. Return to the ER for emergencies. Disposition: 01 DISCHARGE HOME Condition: Stable Shawn Michaels Oct 12, 2017 19:27
== END 2017-10-12 19:49 | disposition home or self-care (01) ==
LOC: NEPK 17:12
DX: S39.012A Strain of muscle, fascia and tendon of lower back, initial encounter (principal); X50.0XXA Overexertion from strenuous movement or load, initial encounter; Y99.0 Civilian activity done for income or pay; Z79.899 Other long term (current) drug therapy
CPT/HCPCS: 99282

== ENCOUNTER 2018-02-11 12:47 | Emergency (ER) | payer BC, MEDICAID ==
[~2018-02-11] VITALS: Ht 172.7 cm; Wt 80.5 kg
[2018-02-11 12:52] VITALS: BP 174/70; PULSE 85; RESP 18; TEMP 98.5; O2SAT 100
--- NOTE | 2018-02-11 13:37 | RADRPT ---
EXAM DATE/TIME: 02/11/2018 13:14 [facility] COMPARISON: No previous studies available for comparison. INDICATIONS : Right hand, distal second digit pain after slamming finger into vehicle door. MEDICAL HISTORY : None. SURGICAL HISTORY : None. ENCOUNTER: Initial ACUITY: 1 day PAIN SCORE: 10/10 LOCATION: Right Hand, second digit. FINDINGS: Examination of the second digit of the right hand demonstrates no evidence of fracture or dislocation . No radiopaque foreign bodies are seen. The soft tissues are intact. CONCLUSION: Negative trauma study. Cem Dunn MD on February 11, 2018 at 13:35 Board Certified Radiologist. This report was verified electronically.
--- NOTE | 2018-02-11 13:45 | PD ---
HPI Chief Complaint: Injury Time Seen by Provider: 13:36 Travel History International Travel<30 days: No Contact w/Intl Traveler<30days: No Traveled to known affect area: No History of Present Illness HPI 22-year-old female presents to the emergency department with complaint of right index finger pain after slamming it in a car door today. Reports 2 small wounds to the palmar and dorsal aspect of the finger also. Needs tetanus update. Reports decreased range of motion secondary to pain. Denies loss of sensation. Rates pain 10/10. Describes as throbbing. Took ibuprofen for symptom management. Pain is constant. Aggravated with palpation and movement. Denies significant past medical history. No primary care provider. No known allergies. Has no other medical complaints. No other modifying factors or associated signs and symptoms. PFSH Past Medical History Hx Anticoagulant Therapy: No Cardiovascular Problems: No Chemotherapy: No Cerebrovascular Accident: No Diabetes: No Diminished Hearing: No Genitourinary: Yes Respiratory: No Immunizations Current: Yes ?: Unknown Past Surgical History Hysterectomy: No Social History Alcohol Use: Yes Tobacco Use: No Substance Use: No Allergies-Medications (Allergen,Severity, Reaction): Coded Allergies: No Known Allergies (Unverified , 05/06/17) Reported Meds & Prescriptions Reported Meds & Active Scripts Active Tramadol (Tramadol HCl) 50 Mg Tab 50 Mg PO Q6H PRN Zofran Odt (Ondansetron Odt) 4 Mg Tab 4 Mg SL Q8HR PRN Tessalon Perles (Benzonatate) 100 Mg Cap 200 Mg PO TID PRN Bactrim DS (Sulfamethoxazole-Trimethoprim) 800-160 Mg Tab 1 Tab PO BID 14 Days Clindamycin (Clindamycin HCl) 150 Mg Cap 300 Mg PO Q8HR 10 Days Ibuprofen 800 Mg Tab 800 Mg PO Q6HR PRN Review of Systems Except as stated in HPI: all other systems reviewed are Neg Physical Exam Narrative GENERAL: Well-nourished, well-developed black female patient, in no acute distress SKIN: Warm and dry. Right index finger with small cut to the cuticle; small cut to the distal pad of the palmar aspect of the finger; ecchymosis noted to the distal pad of the finger also; without signs of infection; no drainage; finger was sensory intact; pink and warm; patient guarding and unable to assess range of motion; no nail damage; minimal edema; patient has nail emirati and acrylic nail in place and I cannot evaluate for subungual hematoma. HEAD: Atraumatic. Normocephalic. EYES: Pupils equal and round. No scleral icterus. No injection or drainage. ENT: Mucosa pink and moist. Airway patent. NECK: Trachea midline. CARDIOVASCULAR: Regular rate. RESPIRATORY: No accessory muscle use. GASTROINTESTINAL: Flat. MUSCULOSKELETAL: No obvious deformities. No clubbing. No cyanosis. No edema. NEUROLOGICAL: Awake and alert. Oriented 3. No obvious cranial nerve deficits. Motor grossly within normal limits. Normal speech. PSYCHIATRIC: Appropriate mood and affect; insight and judgment normal. Data Data Last Documented VS Vital Signs Date Time Temp Pulse Resp B/P (MAP) Pulse Ox O2 Delivery O2 Flow Rate FiO2 02/11/18 12:52 98.5 85 18 174/70 (104) 100 Orders Orders Finger ([id number]) (02/11/18 ) Wound Care (02/11/18 13:54) Splint Or Brace Apply/Monitor (02/11/18 13:54) Tetanus/Diphtheria Tox Adult (Tetanus/Di (02/11/18 14:00) Ed Discharge Order (02/11/18 14:28) MDM Medical Decision Making Medical Screen Exam Complete: Yes Emergency Medical Condition: Yes Medical Record Reviewed: Yes Differential Diagnosis Finger contusion, finger fracture, finger dislocation, laceration, cut, puncture wound Narrative Course 22-year-old female with right index finger injury. There are 2 small cuts to both sides of the finger and there are no signs of infection. No drainage. Right index finger x-ray ordered in triage. Patient just took ibuprofen while she was sitting here in the ER. 1343: Right second finger x-ray concluded: Finger X-Ray 02/11/18 0000 Signed Impressions: Service Date/Time: Sunday, February 11, 2018 13:14 - CONCLUSION: Negative trauma study. Cem Dunn MD Findings discussed with the patient. Wound care provided. Tetanus updated in the ER. Fingers elisabeth taped together for support. Patient given a birdcage splint for support. Instructed patient to follow up with primary care provider. Patient verbalizes understanding and agreement with treatment plan. Patient is medically cleared and stable for discharge. Discussed reasons to return to the emergency department. Patient agrees with treatment plan. The patients vital signs are stable and the patient is stable for outpatient follow- up and treatment. Patient discharged home, stable and in no acute distress. Diagnosis Primary Impression: Contusion of finger of right hand Qualified Codes: S60.021A - Contusion of right index finger without damage to nail, initial encounter Referrals: Primary Care Physician Patient Instructions: Acute Wound Care (DC), Finger Sprain (ED), General Instructions, Jammed Finger (ED) Additional Instructions: Ibuprofen or Tylenol as directed and as needed for pain and inflammation Rest, ice, elevate affected finger Topical antibiotic ointment to wounds as directed and as needed for wound care Keep area clean and dry Splint finger as needed for support Follow-up with primary care provider Return to the emergency department immediately with worsening of symptoms Med/Other Pt SpecificInfo: No Change to Meds, No Meds Exist/No RX given Disposition: 01 DISCHARGE HOME Condition: Stable Azul Pan Feb 11, 2018 13:45
[2018-02-11] MEDS ORDERED: TETANUS/DIPHTHERIA TOXOID ADULT 0.5 ML VIAL IM ONE (14:00)
== END 2018-02-11 14:54 | disposition home or self-care (01) ==
LOC: NEPD 12:47
DX: S60.021A Contusion of right index finger without damage to nail, initial encounter (principal); W23.0XXA Caught, crushed, jammed, or pinched between moving objects, initial encounter; Z23 Encounter for immunization
CPT/HCPCS: 73140; 90471; 90714